=== PATIENT | female | born 2000 | race Caucasian/White ===

== ENCOUNTER 2019-05-15 02:00 | Emergency (ER) | payer OTHER ==
[2019-05-15] MEDS ORDERED: Ibuprofen TAB* 400 MG PO ONE (02:54)
--- NOTE | 2019-05-15 02:56 | ED ---
Head Injury - HPI Summary HPI Summary: This pt is a 18 Y/O F presenting to [facility] accompanied by her friend with a CC of a head injury that occurred while she was wrestling her friend at 0130. She states that the back of her neck hurts and is currently rated a 3/10 in severity. When she landed on her neck she states that she saw black spots and immediately became nauseas. She states that she has pain in the front of her face and her R arm has a tingling sensation that has been present since the injury. She denies any lower extremity pain, abdominal pain, vomiting, diarrhea , LOC, and current visual issues. She states that her last period was a week ago. She denies any aggravating or alleviating factors. She has no pertinent PMHx. - History Of Current Complaint Chief Complaint: [place] Stated Complaint: NAUSEOUS PER PT Time Seen by Provider: 05/15/19 02:34 Hx Obtained From: Patient Mechanism Of Injury: Other - States she fell on the back of her neck while wrestling Onset/Duration: Started Hours Ago - 1 Onset of Pain: Immediate Severity Currently: Mild Severity Initially: Mild Pain Intensity: 3 Pain Scale Used: 0-10 Numeric Location of Head Injury: Occipital Character: Pressure Aggravating Factor(s): Other: - nothing Alleviating Factor(s): Other: - nothing Associated Signs And Symptoms: Negative - lower extremity pain, abdominal pain, vomiting, diarrhea, LOC, and current visual issues., Neck Pain, Nausea, Headache - occipital and frontal, Visual Changes - black spots when injury ocurred, Other: - R arm tingling - Allergies/Home Medications Allergies/Adverse Reactions: Allergies Allergy/AdvReac Type Severity Reaction Status Date / Time [place] nut Allergy Anaphylatic Verified 05/15/19 02:08 Shock PMH/Surg Hx/FS Hx/Imm Hx Previously Healthy: Yes Endocrine/Hematology History: Denies: Hx Diabetes Cardiovascular History: Denies: Hx Hypertension Respiratory History: Denies: Hx Asthma Sensory History: Denies: Hx Contacts or Glasses Opthamlomology History: Denies: Hx Contacts or Glasses - Cancer History Hx Chemotherapy: No Hx Radiation Therapy: No - Surgical History Surgical History: Yes Surgery Procedure, Year, and Place: [place] teeth removal 2012 - Immunization History Immunizations Up to Date: Yes Infectious Disease History: No Infectious Disease History: Denies: Traveled Outside the [place] in Last 30 Days - Family History Known Family History: Positive: Unknown - father's side is unknown due to sperm donation Negative: Cardiac Disease, Hypertension - Social History Occupation: Student - [employer] Lives: Dormitory/Roommates Alcohol Use: Occasionally Hx Substance Use: No Substance Use Type: Reports: None Hx Tobacco Use: No Smoking Status (MU): Never Smoked Tobacco Review of Systems Eyes: Other - States black spots when injury ocurred, denies it now ENT: Other - neck pain Positive: Nausea. Negative: Abdominal Pain, Vomiting, Diarrhea Neurological: Negative - LOC, Other - R arm tingling Positive: Headache - occipital and frontal All Other Systems Reviewed And Are Negative: Yes Physical Exam - Summary Physical Exam Summary: General: Well-developed, Well-nourished female. No acute distress. HEENT: Normocephalic, Atraumatic. Eyes: Conjuctiva normal, PERRL. Ears: TMs within normal limits. Nares: (-) discharge, (-) erythema. Oropharynx: Clear, mucous membranes moist, (-) exudates. Neck: Soft, FROM, (-) lymphadenopathy, (-) thyromegaly, (-) JVD. Mild upper cervical tenderness on the midline Cardiovascular: Normal sinus rhythm, (-) murmur. Lungs: Clear to auscultation bilaterally (-) wheezes, (-) rales, (-) rhonchi. Abdomen: Soft, non-tender, non-distended, (-) organomegaly, normal bowel sounds. Back: (-) CVA tenderness Extremities: No edema. Skin: Warm, dry, (-) rash. Neuro: Alert and oriented x3, no focal deficits. Psychiatric: Mood normal, affect normal. Triage Information Reviewed: Yes Vital Signs On Initial Exam: Initial Vitals Temp Pulse Resp BP Pulse Ox 97.1 F 88 16 127/93 99 05/15/19 02:00 05/15/19 02:00 05/15/19 02:00 05/15/19 02:00 05/15/19 02:00 Vital Signs Reviewed: Yes Procedures - Sedation Patient Received Moderate/Deep Sedation with Procedure: No Diagnostics - Vital Signs Vital Signs Temp Pulse Resp BP Pulse Ox 05/15/19 02:00 97.1 F 88 16 127/93 99 - Laboratory Lab Statement: Any lab studies that have been ordered have been reviewed, and results considered in the medical decision making process. Head Injury Course/Dx Course Of Treatment: 18-year-old female presents with symptoms of neck pain and nose pain after hurting her head and neck while wrestling earlier tonight. Did not take medication. Has not had any visual changes or vomiting. No significant headache. Patient states she does feel a little funny or out of it. Mild muscular tenderness on physical exam. Neuro exam within normal limits. Patient given Motrin 400 mg and ice to the neck. Patient was feeling better after short period time. Discharged home. Advised ice or heat, Tylenol or ibuprofen. Follow up PCP. Follow-up sooner for any worsening symptoms as outlined in written discharge instructions. - Diagnoses Provider Diagnoses: Mild closed head injury Discharge ED - Sign-Out/Discharge Documenting (check all that apply): Patient Departure - discharge - Discharge Plan Condition: Stable Disposition: HOME Patient Education Materials: Head Injury (ED) Forms: *School Release Referrals: [facility] @ [Outside] - 2 Days Additional Instructions: PLEASE FOLLOW UP WITH [facility] IN 1-3 DAYS AND RETURN TO THE EMERGENCY DEPARTMENT FOR ANY NEW OR WORSENING SYMPTOMS. - Billing Disposition and Condition Condition: STABLE Disposition: Home - Attestation Statements Document Initiated by Scribe: Yes Documenting Scribe: Odilon Braswell Provider For Whom Renzo is Documenting (Include Credential): Rabia Hawk MD Scribe Attestation: Odilon Crow, scribed for Rabia Hawk MD on 05/15/19 at 0629. Scribe Documentation Reviewed: Yes Provider Attestation: The documentation as recorded by the Odilon gallegos accurately reflects the service I personally performed and the decisions made by me, Rabia Hawk MD Status of Scribe Document: Viewed
[2019-05-15 04:04] VITALS: BP 120/76
== END 2019-05-15 03:55 | disposition home or self-care (01) ==
LOC: ED 02:00
DX: S09.90XA Unspecified injury of head, initial encounter (principal); M54.2 Cervicalgia; W19.XXXA Unspecified fall, initial encounter; Y93.83 Activity, rough housing and horseplay; Y92.9 Unspecified place or not applicable; Z91.018 Allergy to other foods
CPT/HCPCS: 99283; A9270-GY